=== PATIENT | female | born 1945 | race Caucasian/White ===

== ENCOUNTER → 2016-12-08 | Outpatient (CLI) | payer OTHER ==
[~2016-12-08] MED LIST: XALATAN2.5 ML
== END | disposition home or self-care (01) ==
DX: R26.2 Difficulty in walking, not elsewhere classified (principal); M25.562 Pain in left knee; M25.662 Stiffness of left knee, not elsewhere classified; M62.81 Muscle weakness (generalized)
CPT/HCPCS: 97110 GP; 97150 GO; 97161 GP; 97165 GO; G8978 GP; G8979 GP; G8980 GP; G8987 GO; G8988 GO; G8989 GO

== ENCOUNTER 2017-01-04 07:18 | Inpatient (IN) | payer OTHER ==
[~2017-01-04] VITALS: Ht 174 cm; Wt 87.5 kg
[~2017-01-04 07:18] MED LIST changes: +IRON325 M1 PO; +XALATAN2.5 ML BOTH EYES
[2017-01-04] MEDS ORDERED: LO-DOSE ASPIRIN81 M2 PO (07:52)
[2017-01-04 08:06] VITALS: BP 145/65
[2017-01-04 14:15] VITALS: BP 123/60
[2017-01-04 15:11] LABS: INTER. NORMALIZED RATIO 1.1; PROTHROMBIN TIME 11.4 (9.2-11.2)
[2017-01-04 15:40] VITALS: BP 132/61
[2017-01-04 20:31] VITALS: BP 115/59
[2017-01-04 22:23] VITALS: BP 133/62
[2017-01-05] VITALS (7 sets, daily range): BP systolic 78–143; BP diastolic 34–74
[2017-01-05 07:09] LABS: HEMATOCRIT 28.4 % (36.0-46.0); MCV 88.5 FL (83-99)
[2017-01-05 07:42] LABS: ANION GAP 9 MEQ/L (2-14); CHLORIDE 102 MEQ/L (99-109); GFR ESTIMATE (CALCULATED) > 59 mL/min/; GLUCOSE 125 mg/dL (70-99); POTASSIUM 3.6 MEQ/L (3.7-5.4); SAMPLE HEMOLYSIS CHECK 0; SAMPLE ICTERIC CHECK 0; SAMPLE LIPEMIA CHECK 0; SODIUM 137 MEQ/L (136-147); UREA NITROGEN (BUN) 16 mg/dL (9-23)
[2017-01-05 07:48] LABS: INTER. NORMALIZED RATIO 1.1; PROTHROMBIN TIME 11.2 (9.2-11.2)
[2017-01-05 18:27] LABS: POINT-OF-CARE METER ID UU13113712
[2017-01-06 00:30] VITALS: BP 140/60
[2017-01-06 03:45] VITALS: BP 132/60
[2017-01-06 08:00] VITALS: BP 129/59
[2017-01-06] MEDS ORDERED: SENNA PLUS TAB1 EACH PO (08:42)
[2017-01-06] MEDS ORDERED: CELECOXIB200 MG PO (08:43)
[2017-01-06] MEDS ORDERED: COUMADIN1 MG PO (08:43)
[2017-01-06] MEDS ORDERED: ENDOCET 5-3251 EACH PO (08:43)
[2017-01-06 08:56] LABS: HEMATOCRIT 25.6 % (36.0-46.0); MCV 86.8 FL (83-99)
[2017-01-06 09:03] LABS: INTER. NORMALIZED RATIO 1.4; PROTHROMBIN TIME 14.4 (9.2-11.2)
[2017-01-06 12:12] VITALS: BP 128/61
[2017-01-06 15:58] VITALS: BP 135/61
[2017-01-06 19:51] VITALS: BP 124/83
[2017-01-07] VITALS (15 sets, daily range): BP systolic 121–150; BP diastolic 58–67
[2017-01-07 05:36] LABS: INTER. NORMALIZED RATIO 1.4; PROTHROMBIN TIME 14.5 (9.2-11.2)
[2017-01-07 07:18] LABS: MCV 88.1 FL (83-99)
[2017-01-08 05:44] LABS: INTER. NORMALIZED RATIO 1.4; PROTHROMBIN TIME 14.7 (9.2-11.2)
[2017-01-08 06:27] LABS: HEMATOCRIT 28.9 % (36.0-46.0); MCV 85.3 FL (83-99)
[2017-01-08 08:11] VITALS: BP 150/68
[2017-01-08] MEDS ORDERED: COUMADIN2.5 MG PO (08:46)
== END 2017-01-08 11:09 | disposition home or self-care (01) | DRG 470 ==
LOC: 3WEST 07:18 → 2SOUTH 07:18 → 3WEST 14:08 → 3EAST 01-07 18:21
PROVIDERS: Nurse Practitioner Family; Orthopaedic Surgery
PROC: 0SRD0J9 Replacement of Left Knee Joint with Synthetic Substitute, Cemented, Open Approach (ICD-10-PCS; principal; 2017-01-04)
PROC: 30243N1 Transfusion of Nonautologous Red Blood Cells into Central Vein, Percutaneous Approach (ICD-10-PCS; 2017-01-06)
DX: M17.12 Unilateral primary osteoarthritis, left knee (principal); Z88.6 Allergy status to analgesic agent; Z79.01 Long term (current) use of anticoagulants; D62 Acute posthemorrhagic anemia
CPT/HCPCS: 80048; 82948; 85014; 85018; 85610; 86900; 86901; 86920; 93971; C1713; J0131; J0690; J1100; J1885; J1940; J2250; J2405; J3010; J7050; J7120; P9016